=== PATIENT | male | born 1980 | race African-American/Black ===

== ENCOUNTER 2019-10-20 21:25 | Emergency (ER) | payer OTHER ==
[~2019-10-20] VITALS: Ht 177.8 cm; Wt 54.4 kg
[2019-10-20 23:54] VITALS: BP 119/87
== END 2019-10-20 23:55 ==
LOC: ER 21:25
DX: E86.0 Dehydration (principal); X32.XXXA Exposure to sunlight, initial encounter; Y93.89 Activity, other specified; Y92.89 Other specified places as the place of occurrence of the external cause; Y99.8 Other external cause status